=== PATIENT | female | born 1975 | race Two or more races ===

== ENCOUNTER 2019-12-25 15:51 | Emergency (ER) | payer MEDICAID ==
[~2019-12-25] VITALS: Ht 149.9 cm; Wt 59.0 kg
[2019-12-25 16:04] VITALS: BP 120/70
[2019-12-25] MEDS ORDERED: HYDROcodone/Acetamin 5/325 tab ORAL ONE (16:45)
--- NOTE | 2019-12-25 16:59 | Emergency Room Report ---
History of Present Illness General Chief Complaint: Upper Extremity Injury Source: Patient Present Illness HPI 44-year-old female presents to the emergency department complaining of 9 out of 10 in severity left-sided headache with tenderness on the left side of her head, the left shoulder and left lateral rib cage since this morning. Patient reports status post slip and fall in the bathroom and she states she landed on the tub and hit her head on the wall. Patient reports feeling off balance and having intermittent blurry vision. Patient denies vertigo. She denies nausea or vomiting. Patient reports history of concussion on the left side 3 years ago. Patient denies midline neck or back pain. She denies open wounds or bleeding. She states she is not taking any blood thinning medications. She states she has not taken any medications prior to arrival for her symptoms. She denies . Allergies: Coded Allergies: No Known Allergies (Unverified , 12/25/19) COVID-19 Screening Contact w/high risk pt: No Experienced COVID-19 symptoms?: No COVID-19 Testing performed PICK UP AND DELIVERY DRIVER: No Patient History Past Medical History: see triage record Past Surgical History: none Pertinent Family History: none Now: No Reviewed Nursing Documentation: PMH: Agreed; PSxH: Agreed Nursing Documentation-PMH Past Medical History: No Stated History Review of Systems All Other Systems: negative except mentioned in HPI Physical Exam Vital Signs Date Time Temp Pulse Resp B/P (MAP) Pulse Ox O2 Delivery O2 Flow Rate FiO2 12/25/19 15:57 98.2 80 16 112/73 (86) 99 Room Air Sp02 EP Interpretation: reviewed, normal General Appearance: no apparent distress, alert, GCS 15, non-toxic Head: normocephalic, atraumatic Eyes: bilateral eye normal inspection, bilateral eye PERRL, bilateral eye EOMI, bilateral eye photophobia, bilateral eye other - Pt. has photophobia ENT: hearing grossly normal, normal voice Neck: full range of motion, no meningismus, no bony tend Respiratory: lungs clear, normal breath sounds, speaking full sentences, other - TTp to the lateral left ribs, and under the left breast, no obvious bruises noted. Cardiovascular #1: regular rate, rhythm, no edema Cardiovascular #2: 2+ radial (R), 2+ radial (L) Gastrointestinal: non tender, soft Musculoskeletal: back normal, normal range of motion, gait/station normal, tender - TTP to the anterior left shoulder, Pt. with FROM. Some ST swelling is noted. No palpable step-off. TTp to the lateral left ribs, and under the left breast, no obvious bruises noted. No midline spinous process ttp. No palpable step-offs or obvious deformities of the cervical, lumbar, or sacral spine. Neurologic: alert, motor strength/tone normal, distal neuro normal, oriented x3, sensory intact, cerebellar normal, responsive, speech normal, normal gait, grossly normal, no focal defects Psychiatric: judgement/insight normal Skin: normal color Medical Decision Making PA Attestation Dr. Parks is my supervising Physician whom patient management has been discussed with. Diagnostic Impression: Primary Impression: Contusion of head Qualified Codes: S00.12XA - Contusion of left eyelid and periocular area, initial encounter Additional Impressions: Shoulder contusion Qualified Codes: S40.012A - Contusion of left shoulder, initial encounter Contusion of left chest wall Qualified Codes: S20.212A - Contusion of left front wall of thorax, initial encounter ER Course 44-year-old female presents to the emergency department complaining of 9 out of 10 in severity left-sided headache with tenderness on the left side of her head, the left shoulder and left lateral rib cage since this morning. Patient reports status post slip and fall in the bathroom and she states she landed on the tub and hit her head on the wall. Patient reports feeling off balance and having intermittent blurry vision. Patient denies vertigo. She denies nausea or vomiting. Patient reports history of concussion on the left side 3 years ago. Patient denies midline neck or back pain. She denies open wounds or bleeding. She states she is not taking any blood thinning medications. She states she has not taken any medications prior to arrival for her symptoms. She denies . Ddx considered but are not limited to Fracture, dislocation, contusion, Sprain/Strain/Spasm, Concussion, SAH just to name a few. Vital signs: are WNL, pt. is afebrile H&PE are most consistent with musculoskeletal injury will perform imaging to r/o fractures/dislocations. ORDERS: - CT Head and Chest No Contrast : Both WNL ED INTERVENTIONS: - Bath PO -I do not identify an emergent condition at this time. With current presentation, pt. is stable for close outpatient follow up and conservative treatment. D/w pt. to return promptly to ED with worsening or new symptoms.- Pt. verbalizes' understanding and agreement with proposed treatment plan. DISCHARGE: At this time pt. is stable for d/c to home. Will provide printed p atient care instructions, and any necessary prescriptions. Care plan and follow up instructions have been discussed with the patient prior to discharge. CT/MRI/US Diagnostic Results CT/MRI/US Diagnostic Results #1: Imaging Test Ordered: CT Head nonCon Impression " No acute intracranial pathology is detected" . --Per official radiology report- Please see report for specific details. CT/MRI/US Diagnostic Results #2: Imaging Test Ordered: CT Chest nonCon Impression " No acute injury to the chest is detected no pneumothorax or pleural effusion is detected" --Per official radiology report- Please see report for specific details. Last Vital Signs Date Time Temp Pulse Resp B/P (MAP) Pulse Ox O2 Delivery O2 Flow Rate FiO2 12/25/19 16:04 98.2 80 18 120/70 98 Room Air Status: improved Disposition: HOME, SELF-CARE Condition: Stable Scripts Hydrocodone Bit/Acetaminophen 5-325* (NORCO 5-325 TABLET*) 1 Each Tablet 1 TAB ORAL Q8HR PRN for FOR PAIN, #12 TAB 0 Refills Prov: Flaca Pickens 12/25/19 Referrals: NON PHYSICIAN (PCP) Jovan Franks [facility] Patient Instructions: Chest Contusion, Contusion, [id number], Shoulder Pain, [id number] Additional Instructions: Take medications as directed. Follow up with a Primary Care Provider in 3-5 days For a referral to have NEUROLOGIST Evaluation, even if your symptoms have resolved. --Please review list of primary care clinics, if you do not already have a primary care provider Return sooner to ED if new symptoms occur, or current symptoms become worse. - Please note that this Emergency Department Report was dictated using [employer] project manager technology software, occasionally this can lead to erroneous entry secondary to interpretation by the dictation equipment. Flaca Pickens Dec 25, 2019 16:59
--- NOTE | 2019-12-25 17:04 | Diagnostic Imaging Report ---
EXAM: CT Head Without Intravenous Contrast CLINICAL HISTORY: Headache. TECHNIQUE: Axial computed tomography images of the head/brain without intravenous contrast. CTDI is 53.4 mGy and DLP is 860.2 mGy-cm. One or more of the following dose reduction techniques were used: automated exposure control, adjustment of the mA and/or kV according to patient size, use of iterative reconstruction technique. COMPARISON: No previous studies. FINDINGS: Brain: No abnormal extra-axial collection. No hemorrhage. Midline shift: No midline shift or mass-effect. Ventricles: The ventricular system is age appropriate. Bones/joints: Calvarium is unremarkable. No acute fracture. Soft tissues: Unremarkable. Sinuses: Mild chronic ethmoid sinusitis. Mastoid air cells: Evaluation of the mastoid air cells is unremarkable. Other findings: Axial and coronal imaging planes were provided. IMPRESSION: 1. No acute intracranial pathology is detected. 2. If there is concern for etiology such as early acute lacunar infarcts, magnetic resonance imaging of the brain with gadolinium administration should be performed.
--- NOTE | 2019-12-25 17:14 | Diagnostic Imaging Report ---
EXAM: CT Chest Without Intravenous Contrast CLINICAL HISTORY: History of fall. Right-sided chest pain. TECHNIQUE: Axial computed tomography images of the chest without intravenous contrast. CTDI is 3.7 mGy and DLP is 147.4 mGy-cm. One or more of the following dose reduction techniques were used: automated exposure control, adjustment of the mA and/or kV according to patient size, use of iterative reconstruction technique. COMPARISON: No previous studies. FINDINGS: Lungs: Evaluation of the right pulmonary parenchyma reveals subsegmental atelectasis posteriorly. Evaluation of the left pulmonary parenchyma reveals subsegmental atelectasis posteriorly. The airway is patent. Pleural space: No pneumothorax or pleural effusion is detected. Heart: Unremarkable. No cardiomegaly. No significant pericardial effusion. Thyroid: Thyroid gland is unremarkable. Bones/joints: Right clavicle is unremarkable. Right shoulder joint is intact. Right scapula is unremarkable per Evaluation of the right ribs reveals no acute right rib fractures. Evaluation of the left ribs reveals no acute left rib fractures. Alignment of the thoracic spine is within normal limits. Sternum is unremarkable. Soft tissues: Unremarkable. Vasculature: Unremarkable. No thoracic aortic aneurysm. Lymph nodes: Unremarkable. No enlarged lymph nodes. Liver: Diffuse fatty infiltration of the liver is noted. Gallbladder and bile ducts: Possible sludge and tiny gallstones within the gallbladder. Stomach and bowel: Presumed ingested material in the stomach. Other findings: Spinous processes are unremarkable. IMPRESSION: 1. No acute injury to the chest is detected. 2. No pneumothorax or pleural effusion is detected.
[2019-12-25] MEDS ORDERED: NORCO 5-325 TA1 EAC1 ORAL (17:41)
[2019-12-25 17:47] VITALS: BP 128/68
== END 2019-12-25 17:47 | disposition home or self-care (01) ==
LOC: EMR 16:15
DX: S00.12XA Contusion of left eyelid and periocular area, initial encounter (principal); S40.012A Contusion of left shoulder, initial encounter; S20.212A Contusion of left front wall of thorax, initial encounter; W01.10XA Fall on same level from slipping, tripping and stumbling with subsequent striking against unspecified object, initial encounter; Y92.9 Unspecified place or not applicable
CPT/HCPCS: 70450; 71250; Z7502; 99284